=== PATIENT | female | born 1975 | race Caucasian/White ===

== ENCOUNTER 2020-12-24 12:20 | Inpatient (IN) | payer MEDICARE, MEDICAID ==
[~2020-12-24] VITALS: Ht 165.1 cm; Wt 86.5 kg
[~2020-12-24 12:20] MED LIST: ALPR1TAB2 PO; CYMBALTA PO; DULO60CA7 PO; PHEN15CA2 PO; TOPAMAX PO; TOPI100T24 PO; XANAX PO
--- NOTE | 2020-12-24 13:06 | NUR ---
APPEALS COORDINATOR: EKG COMPLETED IN TRIAGE
[2020-12-24] MEDS ORDERED: ONDANSETRON 2MG/ML, 2ML IVPush ONE (13:30)
[2020-12-24] MEDS ORDERED: SODIUM CHLORIDE 0.9% 1,000ML IVBOLUS ONE (13:30)
[2020-12-24] MEDS ORDERED: FAMOTIDINE 20 MG/2 ML IVPush ONE (13:30)
[2020-12-24 14:18] LABS: BASOPHILS % (AUTO) 0 % (0-1); EOSINOPHILS % (AUTO) 0 % (1-7); LYMPHOCYTES % (AUTO) 27 % (22-44); MEAN CORPUSCULAR HEMOGLOBIN 35.4 pg (27.0-34.8); MEAN CORPUSCULAR HGB CONC 34.4 g/dL (32.4-35.8); MEAN PLATELET VOLUME 6.9 fL (7.4-10.4); MONOCYTES % (AUTO) 4 % (2-9); NEUTROPHILS % (AUTO) 69 % (42-75); PLATELET COUNT 281 x10^3/uL (130-400); RED BLOOD COUNT 4.46 x10^6/uL (3.82-5.3)
[2020-12-24] MEDS ORDERED: FAMOTIDINE 20 MG/2 ML ONE (14:18)
[2020-12-24] MEDS ORDERED: ONDANSETRON 2MG/ML, 2ML ONE ×2 (14:18→18:09)
[2020-12-24 14:22] LABS: ALBUMIN 3.6 g/dL (3.4-5.0); ANION GAP 14 mmol/L (5-15); CALCIUM 8.8 mg/dL (8.5-10.1); CHLORIDE 100 mmol/L (98-107)
[2020-12-24 14:29] LABS: ALANINE AMINOTRANSFERASE 86 U/L (12-78); ALKALINE PHOSPHATASE 98 U/L (45-117); BILIRUBIN,TOTAL 0.4 mg/dL (0.2-1.0); TOTAL PROTEIN 7.9 g/dL (6.4-8.2)
[2020-12-24 14:32] LABS: SALICYLATE LEVEL < 1.7 mg/dL (2.8-20.0)
[2020-12-24] MEDS ORDERED: LORazepam 2 MG/ML, 1ML ONE (14:47)
[2020-12-24] MEDS ORDERED: LORazepam 2 MG/ML, 1ML IVPush ONE ×2 (15:00→15:30)
[2020-12-24] MEDS ORDERED: THIAMINE 100 MG in SODIUM CHLORIDE 0.9% 50 ML IV SCH (15:00)
[2020-12-24] MEDS ORDERED: POTASSIUM CHLORIDE 40 MEQ in SODIUM CHLORIDE 0.9% 500 ML IV ONE (15:00)
[2020-12-24 15:14] LABS: AMPHETAMINE SCREEN, URINE Negative (Negative); BARBITURATE SCREEN, URINE Negative (Negative); BENZODIAZEPINE SCREEN, URINE Negative (Negative); CANNABINOID SCREEN, URINE Negative (Negative); COCAINE SCREEN, URINE Negative (Negative); METHADONE SCREEN, URINE Negative (Negative); OPIATE SCREEN, URINE Negative (Negative)
[2020-12-24] MEDS ORDERED: PROMETHAZINE 25 MG/ML, 1ML IM ONE (15:30)
[2020-12-24] MEDS ORDERED: PROMETHAZINE 25 MG/ML, 1ML ONE (15:33)
--- NOTE | 2020-12-24 15:53 | NUR ---
DR OWEN AT BEDSIDE. LAB RESULTS, PLAN FOR ADMIT DISCUSSED. PT CONTINUES WITH +NAUSEA AND DRY HEAVES. NEW ORDERS REC'D AND PT MED NOTED. CALL LIGHT W/I REACH, PT VERBLAIZES UNDERSTANDING TO CALL FOR ASSISTANCE IF SHE NEEDS TO GET OOB.
--- NOTE | 2020-12-24 16:21 | NUR ---
GLADYS CABELLO AT BEDSIDE, PT ASSESSMENT REVIEWED AND PLAN FOR ADMIT DISCUSSED
[2020-12-24] MEDS ORDERED: LORazepam 2 MG/ML, 1ML IV PRN ×2 (16:30)
[2020-12-24] MEDS ORDERED: PANTOPRAZOLE 80 MG in SODIUM CHLORIDE 0.9% 50 ML IV ONE (16:30)
[2020-12-24] MEDS ORDERED: LORazepam 0.5MG TABLET PO PRN (16:30)
[2020-12-24] MEDS ORDERED: ACETAMINOPHEN 325 MG TABLET PO PRN (16:30)
[2020-12-24] MEDS: PANTOPRAZOLE 80 MG in SODIUM CHLORIDE 0.9% 100 ML IV SCH (17:22)
[2020-12-24] MEDS: ONDANSETRON 2MG/ML, 2ML IVPush PRN (18:09)
[2020-12-24 18:47] VITALS: BP 127/85
[2020-12-24 20:00] VITALS: BP 127/85
[2020-12-24] MEDS: LACTOBACILLUS CHEW TABLET PO SCH (21:12)
[2020-12-24] MEDS: POTASSIUM CHLORIDE 20 MEQ, MAGNESIUM SULFATE 2 GM, THIAMINE 200 MG, MVI ADULT 10 ML, FO... IV SCH (21:12)
[2020-12-24] MEDS: LORazepam 2 MG/ML, 1ML IV PRN (21:25)
[2020-12-24 21:30] VITALS: BP 127/85
[2020-12-25] MEDS: NICOTINE 14MG/24 HR PATCH.TD24 TD SCH ×2 (00:03→20:24)
[2020-12-25] MEDS: ONDANSETRON 2MG/ML, 2ML IVPush PRN ×2 (00:27→03:19)
[2020-12-25 02:00] VITALS: BP 119/82
[2020-12-25] MEDS: PANTOPRAZOLE 80 MG in SODIUM CHLORIDE 0.9% 100 ML IV SCH ×3 (03:12→22:57)
[2020-12-25 05:54] LABS: BASOPHILS % (AUTO) 1 % (0-1); EOSINOPHILS % (AUTO) 0 % (1-7); LYMPHOCYTES % (AUTO) 39 % (22-44); MEAN CORPUSCULAR HEMOGLOBIN 35.4 pg (27.0-34.8); MEAN PLATELET VOLUME 6.8 fL (7.4-10.4); MONOCYTES % (AUTO) 7 % (2-9); NEUTROPHILS % (AUTO) 53 % (42-75); PLATELET COUNT 180 x10^3/uL (130-400); RED BLOOD COUNT 3.39 x10^6/uL (3.82-5.3)
[2020-12-25 06:07] LABS: ANION GAP 7 mmol/L (5-15); CALCIUM 7.7 mg/dL (8.5-10.1); CHLORIDE 109 mmol/L (98-107); CREATININE 1.58 mg/dL (0.55-1.02)
[2020-12-25] MEDS: POTASSIUM CHLORIDE 20 MEQ, MAGNESIUM SULFATE 2 GM, THIAMINE 200 MG, MVI ADULT 10 ML, FO... IV SCH (07:32)
[2020-12-25] MEDS: LORazepam 2 MG/ML, 1ML IV PRN (08:30)
[2020-12-25] MEDS: POTASSIUM CHLORIDE 20 MEQ TAB.ER.PRT PO SCH ×2 (08:42→15:09)
[2020-12-25] MEDS: DULOXETINE 30 MG CAPSULE.DR PO SCH ×2 (08:42→10:26)
[2020-12-25] MEDS: LACTOBACILLUS CHEW TABLET PO SCH ×4 (08:42→20:00)
[2020-12-25] MEDS: TOPIRAMATE 100 MG TABLET PO SCH ×2 (08:42→10:26)
[2020-12-25] MEDS: D5%-0.45NACL+KCL 20MEQ 1,000 ML IV SCH ×2 (10:25→20:00)
[2020-12-25] MEDS: SUCRALFATE 1 GM/10 ML UDC PO SCH ×3 (10:25→20:00)
[2020-12-25] MEDS: FOLIC ACID 1 MG TABLET PO SCH (10:26)
[2020-12-25] MEDS: THIAMINE 100MG TABLET PO SCH (10:26)
[2020-12-25] MEDS: MULTIVITAMIN 1 TABLET PO SCH (10:26)
[2020-12-25] MEDS ORDERED: CARB100T4 PO (11:19)
[2020-12-25] MEDS ORDERED: VALA500T4 PO (11:19)
[2020-12-25] MEDS ORDERED: DOXE50CA PO (11:19)
[2020-12-25] MEDS ORDERED: PROP10TA16 PO (11:19)
[2020-12-25] MEDS ORDERED: PRAZ1CAP2 PO (11:19)
[2020-12-25] MEDS ORDERED: DESV50TA PO (11:19)
[2020-12-25 14:45] VITALS: BP 117/77
[2020-12-25] MEDS: LORazepam 1MG TABLET PO PRN ×3 (15:10→22:58)
[2020-12-25] MEDS: ONDANSETRON ODT 4 MG PO PRN (18:43)
[2020-12-25] MEDS: ACETAMINOPHEN 500 MG TABLET PO PRN (20:00)
[2020-12-25 20:14] VITALS: BP 129/86
[2020-12-25] MEDS ORDERED: POTASSIUM CHLORIDE 20 MEQ, MAGNESIUM SULFATE 2 GM, THIAMINE 200 MG, MVI ADULT 10 ML, FO... IV SCH (21:00)
[2020-12-26 03:59] VITALS: BP 117/82
[2020-12-26] MEDS: ACETAMINOPHEN 500 MG TABLET PO PRN ×2 (04:12→21:31)
[2020-12-26] MEDS: LORazepam 1MG TABLET PO PRN ×5 (04:12→21:32)
[2020-12-26 06:17] LABS: BASOPHILS % (AUTO) 1 % (0-1); EOSINOPHILS % (AUTO) 4 % (1-7); LYMPHOCYTES % (AUTO) 46 % (22-44); MEAN CORPUSCULAR HEMOGLOBIN 35.2 pg (27.0-34.8); MEAN CORPUSCULAR HGB CONC 33.4 g/dL (32.4-35.8); MONOCYTES % (AUTO) 8 % (2-9); NEUTROPHILS % (AUTO) 41 % (42-75); PLATELET COUNT 185 x10^3/uL (130-400); RED BLOOD COUNT 3.53 x10^6/uL (3.82-5.3); RED CELL DISTRIBUTION WIDTH 12.7 % (9.6-15.2)
[2020-12-26 06:20] VITALS: BP 124/84
[2020-12-26] MEDS: SUCRALFATE 1 GM/10 ML UDC PO SCH ×4 (06:20→21:31)
[2020-12-26 06:27] LABS: ALBUMIN 2.4 g/dL (3.4-5.0); ANION GAP 5 mmol/L (5-15); CALCIUM 7.8 mg/dL (8.5-10.1); CHLORIDE 112 mmol/L (98-107)
[2020-12-26 06:31] LABS: ALANINE AMINOTRANSFERASE 41 U/L (12-78); ALKALINE PHOSPHATASE 64 U/L (45-117); BILIRUBIN,TOTAL 0.4 mg/dL (0.2-1.0); CREATININE 1.16 mg/dL (0.55-1.02); TOTAL PROTEIN 5.2 g/dL (6.4-8.2)
[2020-12-26] MEDS: DULOXETINE 30 MG CAPSULE.DR PO SCH (08:28)
[2020-12-26] MEDS: TOPIRAMATE 100 MG TABLET PO SCH (08:28)
[2020-12-26] MEDS: PANTOPRAZOLE 20MG TABLET PO SCH ×2 (08:28→16:02)
[2020-12-26] MEDS: THIAMINE 100MG TABLET PO SCH (08:28)
[2020-12-26] MEDS: MULTIVITAMIN 1 TABLET PO SCH (08:28)
[2020-12-26] MEDS: FOLIC ACID 1 MG TABLET PO SCH (08:28)
[2020-12-26] MEDS: LACTOBACILLUS CHEW TABLET PO SCH ×3 (08:28→21:32)
[2020-12-26 16:07] VITALS: BP 126/85
[2020-12-26 19:02] VITALS: BP 116/73
[2020-12-26] MEDS: NICOTINE 14MG/24 HR PATCH.TD24 TD SCH (21:35)
[2020-12-27 01:09] VITALS: BP 130/87
[2020-12-27 06:13] LABS: BASOPHILS % (AUTO) 1 % (0-1); EOSINOPHILS % (AUTO) 7 % (1-7); LYMPHOCYTES % (AUTO) 48 % (22-44); MEAN CORPUSCULAR HEMOGLOBIN 35.6 pg (27.0-34.8); MEAN CORPUSCULAR HGB CONC 34.2 g/dL (32.4-35.8); MEAN PLATELET VOLUME 7.2 fL (7.4-10.4); MONOCYTES % (AUTO) 8 % (2-9); NEUTROPHILS % (AUTO) 37 % (42-75); PLATELET COUNT 195 x10^3/uL (130-400); RED BLOOD COUNT 3.77 x10^6/uL (3.82-5.3)
[2020-12-27 06:25] LABS: ALBUMIN 2.5 g/dL (3.4-5.0); ANION GAP 5 mmol/L (5-15); CALCIUM 8.2 mg/dL (8.5-10.1); CHLORIDE 109 mmol/L (98-107)
[2020-12-27 06:31] LABS: ALANINE AMINOTRANSFERASE 40 U/L (12-78); ALKALINE PHOSPHATASE 66 U/L (45-117); BILIRUBIN,TOTAL 0.4 mg/dL (0.2-1.0); CREATININE 0.79 mg/dL (0.55-1.02); TOTAL PROTEIN 5.8 g/dL (6.4-8.2)
[2020-12-27] MEDS: SUCRALFATE 1 GM/10 ML UDC PO SCH ×4 (06:44→21:24)
[2020-12-27] MEDS: ACETAMINOPHEN 500 MG TABLET PO PRN ×3 (06:44→22:39)
[2020-12-27] MEDS: PANTOPRAZOLE 20MG TABLET PO SCH ×2 (06:44→16:24)
[2020-12-27] MEDS: LORazepam 1MG TABLET PO PRN ×4 (06:44→22:39)
[2020-12-27 06:47] VITALS: BP 137/91
[2020-12-27] MEDS: TOPIRAMATE 100 MG TABLET PO SCH (09:08)
[2020-12-27] MEDS: DULOXETINE 30 MG CAPSULE.DR PO SCH (09:08)
[2020-12-27] MEDS: FOLIC ACID 1 MG TABLET PO SCH (09:08)
[2020-12-27] MEDS: MULTIVITAMIN 1 TABLET PO SCH (09:08)
[2020-12-27] MEDS: LACTOBACILLUS CHEW TABLET PO SCH ×3 (09:08→21:24)
[2020-12-27] MEDS: THIAMINE 100MG TABLET PO SCH (09:09)
[2020-12-27 13:58] VITALS: BP 130/88
[2020-12-27] MEDS: ONDANSETRON ODT 4 MG PO PRN (16:24)
[2020-12-27 19:31] VITALS: BP 124/89
[2020-12-27] MEDS: NICOTINE 14MG/24 HR PATCH.TD24 TD SCH (21:25)
[2020-12-27 21:37] VITALS: BP 120/84
[2020-12-28 00:27] VITALS: BP 129/83
[2020-12-28 05:17] VITALS: BP 122/86
[2020-12-28] MEDS: PANTOPRAZOLE 20MG TABLET PO SCH ×2 (05:20→16:30)
[2020-12-28] MEDS: LORazepam 1MG TABLET PO PRN ×3 (05:20→14:51)
[2020-12-28 07:20] VITALS: BP 116/72
[2020-12-28] MEDS: SUCRALFATE 1 GM/10 ML UDC PO SCH ×3 (08:13→16:30)
[2020-12-28] MEDS: ACETAMINOPHEN 500 MG TABLET PO PRN (09:38)
[2020-12-28] MEDS: DULOXETINE 30 MG CAPSULE.DR PO SCH (09:38)
[2020-12-28] MEDS: MULTIVITAMIN 1 TABLET PO SCH (09:38)
[2020-12-28] MEDS: FOLIC ACID 1 MG TABLET PO SCH (09:39)
[2020-12-28] MEDS: THIAMINE 100MG TABLET PO SCH (09:39)
[2020-12-28] MEDS: TOPIRAMATE 100 MG TABLET PO SCH (09:39)
[2020-12-28] MEDS: LACTOBACILLUS CHEW TABLET PO SCH ×2 (09:39→16:31)
[2020-12-28 12:09] VITALS: BP 118/82
[2020-12-28] MEDS ORDERED: NALTREXONE HCL 50 MG TABLET PO ONE (13:00)
[2020-12-28] MEDS ORDERED: DOXE50CA PO (13:02)
[2020-12-28] MEDS ORDERED: DESV50TA PO (13:02)
[2020-12-28] MEDS ORDERED: PRAZ1CAP2 PO (13:02)
[2020-12-28] MEDS ORDERED: NALT50TA PO (13:02)
[2020-12-28] MEDS ORDERED: CARB100T4 PO (13:02)
[2020-12-28] MEDS ORDERED: PROM25AM6 PR (20:21)
== END 2020-12-28 17:45 | disposition home or self-care (01) | DRG 377 ==
LOC: ED 12:50 → EDIP 17:33 → 4WST 18:25
PROVIDERS: ADMIT Internal Medicine; ATTEND Hospitalist
DX: K29.21 Alcoholic gastritis with bleeding (principal); N17.0 Acute kidney failure with tubular necrosis; F10.239 Alcohol dependence with withdrawal, unspecified; E87.1 Hypo-osmolality and hyponatremia; R45.851 Suicidal ideations; F33.2 Major depressive disorder, recurrent severe without psychotic features; F10.29 Alcohol dependence with unspecified alcohol-induced disorder; K29.20 Alcoholic gastritis without bleeding; F43.10 Post-traumatic stress disorder, unspecified; Y90.0 Blood alcohol level of less than 20 mg/100 ml; G40.909 Epilepsy, unspecified, not intractable, without status epilepticus; E87.6 Hypokalemia; E66.9 Obesity, unspecified; G47.33 Obstructive sleep apnea (adult) (pediatric); Z68.30 Body mass index [BMI] 30.0-30.9, adult; Z87.410 Personal history of cervical dysplasia; Z71.41 Alcohol abuse counseling and surveillance of alcoholic
CPT/HCPCS: 36415; 80048; 80053; 80299; 80307; 80320; 80329; 83690; 83735; 84703; 85025; 93005; 96365; 96375; G0378; J2405; J2550; J3411; J3475; J3480; J7042; Q0162; C9113; G0480; J2060; J7030; J7040